=== PATIENT | female | born 1975 | race Asian ===

== ENCOUNTER 2017-12-29 08:31 | Outpatient (CLI) | payer BC ==
[2017-12-29 08:59] LABS: ALT (SGPT) 17 U/L (8-55); AST (SGOT) 14 U/L (5-34); Albumin 4.4 g/dL (3.5-5.0); Alkaline Phosphatase 116 U/L (40-150); Anion Gap 12 mmol/L (10-20); BUN (Urea Nitrogen) 22 mg/dL (7.0-18.7); Bilirubin, Total 0.8 mg/dL (0.2-1.2); Calc. Creatinine Clearance 0 mL/min (70-130); Calcium 9.3 mg/dL (7.8-10.44); Carbon Dioxide 24 mmol/L (22-29); Cardiac Risk 3.4 (Less than 4.5); Chloride 107 mmol/L (98-107); Cholesterol 171 mg/dl (< 200 Desired); Estimated GFR-MDRD 78; Globulin 3.1 g/dL (2.4-3.5); Glucose 100 mg/dL (70-105); HDL Cholesterol 51 mg/dL (>60 Neg Risk); LDL Cholesterol, Calculated 98 mg/dL; Potassium 3.8 mmol/L (3.5-5.1); Protein, Total 7.5 g/dL (6.0-8.3); Sodium 139 mmol/L (136-145); Triglycerides 110 mg/dL (Less than 150)
--- NOTE | 2017-12-29 09:31 | RAD ---
3 VIEWS LEFT SHOULDER: Date: 12/29/17 COMPARISON: None. HISTORY: Left shoulder pain for 2 years, worsening over the past month, left hand weakness. FINDINGS: There is no widening of the acromioclavicular or coracoclavicular interspace. There is no displaced f racture or evidence of dislocation seen. There is a mild degree of upper thoracic spine levoscoliosis. IMPRESSION: No acute osseous abnormality. POS: TRISTEN
--- NOTE | 2017-12-29 09:34 | RAD ---
THORACIC SPINE SERIES 3 VIEWS: HISTORY: Back pain and left shoulder pain. FINDINGS: There is a scoliotic change in the spine convex to the left. This is centered more in the upper thor acic spine and has a scoliosis of approximately 15 degrees. Pedicles are intact. No other findings. IMPRESSION: Minimal levoscoliosis. POS: C
--- NOTE | 2017-12-29 09:42 | RAD ---
CERVICAL SPINE 3 VIEWS: HISTORY: Neck and upper back pain and left shoulder pain. FINDINGS: Cervical vertebrae maintain normal height and alignment. There is mild loss of disk space at C3-4 an d C4-5. Small anterior osteophytes are seen at these levels. Posterior elements appear normally ali gned. IMPRESSION: Mild degenerative changes described. POS: TRISTEN
== END 2017-12-29 08:32 | disposition home or self-care (01) ==
LOC: SCSRAD 08:31
PROVIDERS: ATTEND Family Medicine
DX: Z00.00 Encounter for general adult medical examination without abnormal findings (principal); M62.81 Muscle weakness (generalized); M25.512 Pain in left shoulder; M47.892 Other spondylosis, cervical region
CPT/HCPCS: 36415; 72040; 72072; 80053; 80061; 82306

== ENCOUNTER 2018-01-10 12:51 | Outpatient (CLI) | payer BC ==
--- NOTE | 2018-01-10 15:02 | MMO ---
SCREENING MAMMOGRAM: 01/10/2018 COMPARISON: 04/21/2016 FINDINGS: The patient's mammogram is also evaluated using computer aided detection. The patient's breasts are dense, which does decrease the sensitivity for the detection of pathology. On the MLO view, there is an area of increased density, seen posterior to the nipples, appearing to b e fairly central; however, this area is not definitively seen on the CC view, to confirm the exact lo cation. I do recommend further evaluation using a left breast diagnostic mammogram, including tomosy nthesis images, to further evaluate this region. In addition, elective sonographic evaluation may al so be of use, depending on what mammographic findings suggest. IMPRESSION: BI-RADS Category 0: Incomplete. Additional left breast mammographic and possible sonographic evalua tion recommended. POS: TRISTEN
== END 2018-01-10 12:52 | disposition home or self-care (01) ==
LOC: SCSMAMMO 12:51
PROVIDERS: ATTEND Family Medicine
DX: Z12.31 Encounter for screening mammogram for malignant neoplasm of breast (principal)
CPT/HCPCS: 77067

== ENCOUNTER 2018-01-26 10:21 | Outpatient (CLI) | payer BC | END 2018-01-26 10:22 | disposition home or self-care (01) | LOC: BICMAMMO 10:21 | PROVIDERS: ATTEND Family Medicine | DX: R92.1 Mammographic calcification found on diagnostic imaging of breast (principal) | CPT/HCPCS: G0279 ==